=== PATIENT | female | born 1945 | race Caucasian/White ===

== ENCOUNTER 2021-01-11 09:18 | Emergency (ER) | payer MEDICARE, SELFPAY ==
--- NOTE | ~2021-01-11 | XR_ITS ---
EXAMINATION: XR chest 2V DATE: 01/11/2021 10:03 INDICATION: Nonproductive cough. TECHNIQUE: Frontal and lateral views of the chest were obtained. COMPARISON: None. FINDINGS: The chest demonstrates clear lungs without pneumonia, pleural effusion, or pneumothorax. Th e heart size is normal. Surgical clips in the right upper quadrant are likely from cholecystectomy. IMPRESSION: 1. No acute cardiopulmonary disease. Reviewed, dictated and finalized at location A.
[2021-01-11 09:31] VITALS: BP 143/89; PULSE 76; RESP 18; TEMP 36.4; O2SAT 97
--- NOTE | 2021-01-11 09:46 | ED.URI ---
HPI - URI/Sore Throat General Chief Complaint: Upper Respiratory Infection Stated Complaint: cold symptoms Time Seen by Provider: 01/11/21 09:46 Source: patient and RN notes reviewed Mode of arrival: ambulatory Limitations: no limitations History of Present Illness HPI Narrative: 75-year-old female presents with concern for cough that started on Friday. Reports she was out of town in [facility] and when she returned her cough began. She denies rhinorrhea, nasal congestion, sore throat, postnasal drainage, wheezing, shortness of breath. Reports feeling like she has sputum to cough up, however is unable to. Reports she has been taking Coricidin HBP with little relief. She denies fever, body aches, chills, sweats. Reports she has been Covid vaccinated, her second dose was in November. MD elicited complaint: cough Related Data Home Medications Medication Instructions Recorded Confirmed losartan 50 mg PO BID 01/11/21 01/11/21 metoprolol tartrate 50 mg PO Q12H 01/11/21 01/11/21 Allergies Allergy/AdvReac Type Severity Reaction Status Date / Time No Known Allergies Allergy Verified 01/11/21 09:49 Review of Systems Review of Systems: Narrative: CONSTITUTIONAL: Denies malaise, chills, sweats, or fever. EYES: Denies visual changes, redness, or discharge. ENT: Denies rhinorrhea, congestion, sinus pain, otalgia and sore throat. CARDIOVASCULAR: Denies chest pain, palpitations, or edema. RESPIRATORY: Reports cough. Denies dyspnea. GASTROINTESTINAL: Denies abdominal pain, nausea, vomiting, diarrhea SKIN: Denies rash or itching. MUSCULOSKELETAL: Denies myalgia. NEUROLOGIC: Denies headache. All systems reviewed & are unremarkable except as noted in HPI and below PMFSH Social History Social History Gender identity (if verbalized by the patient): Female Comments At time of signature, agree with nursing past medical, surgical, social and family history. There is no relevant family history pertinent to the presenting complaint Exam Narrative: Exam Narrative: GENERAL: Well-appearing, well-nourished, and in no acute distress. HEAD: Normocephalic EYES: PERRLA, conjunctivae clear ENT: Nares clear, turbinates pink, no discharge. Mucous membranes moist. TM pearly dunlap with sharp light reflex bilaterally; no tragal tenderness. Oropharynx not erythematous without lesions. Tonsils not enlarged and without exudate, no drooling, no hoarseness, no trismus, uvula midline. NECK: Supple. No lymphadenopathy CHEST: Breath sounds equal. Scattered wheezing, rhonchi. Cough noted. No rales, or stridor. No respiratory distress, speaks in full sentences. HEART: Regular rate and rhythm. No murmur heard. SKIN: Warm, dry, no rash. NEURO: Alert and oriented x3. PSYCH: Normal mood and affect Course Course Emergency Course: Patient is aware of diagnosis, understands and agrees to treatment plan. Anticipatory guidance given. Patient agrees to follow-up as directed and is aware of reasons to seek care at the emergency department. Portions of this record may have been created with voice recognition software Vital Signs Vital signs: Vital Signs Temperature 97.5 F L 01/11/21 09:31 Pulse Rate 76 01/11/21 09:31 Respiratory Rate 18 01/11/21 09:31 Blood Pressure 143/89 H 01/11/21 09:31 Pulse Oximetry 97 01/11/21 09:31 Temperature 97.5 F L 01/11/21 09:31 Pulse Rate 76 01/11/21 09:31 Respiratory Rate 18 01/11/21 09:31 Blood Pressure 143/89 H 01/11/21 09:31 Pulse Oximetry 97 01/11/21 09:31 Reviewed. MDM - URI/Sore Throat MDM Narrative Medical decision making narrative: Differential diagnosis considered: Breaux virus, strep pharyngitis, allergic rhinitis, upper respiratory tract infection, sinusitis, rhinosinusitis, nasopharyngitis. viral pharyngitis, otitis media, otitis externa, pneumonia, bronchitis, viral cough syndrome, viral syndrome, and influenza. Exam findings show no acute concerns or changes; patient is non-to
== END 2021-01-11 10:18 | disposition home or self-care (01) ==
PROVIDERS: Emergency Provider Nurse Practitioner; PCP Internal Medicine
DX: R05 Cough (principal); Z20.822 Contact with and (suspected) exposure to COVID-19; I12.9 Hypertensive chronic kidney disease with stage 1 through stage 4 chronic kidney disease, or unspecified chronic kidney disease; N18.4 Chronic kidney disease, stage 4 (severe)
CPT/HCPCS: 71046; 87426; 87804; 99213; C9803; G0463

== ENCOUNTER 2021-10-13 09:56 | Emergency (ER) | payer MEDICARE, SELFPAY ==
--- NOTE | 2021-10-13 10:03 | PC.NURSE ---
in br to obtain ua spec.
[2021-10-13 10:09] VITALS: BP 128/97; PULSE 73; RESP 16; TEMP 36.2; O2SAT 99
--- NOTE | 2021-10-13 10:53 | ED.FEMALEGU ---
HPI - Female Genitourinary General Chief complaint: Urogenital-Female Stated complaint: bladder infection Time Seen by Provider: 10/13/21 10:50 Source: patient Mode of arrival: ambulatory Limitations: no limitations History of Present Illness HPI Narrative: Ewa Hernadez is a 76 yo female with HTN, on preventive high cholesterol, who comes to [facility] for complaints of dysuria for the last few days she states that they have improved but her sister who is a nurse tells me that she can fully recover from a potential UTI without medication Related Data Home Medications Medication Instructions Recorded Confirmed losartan 50 mg PO BID 01/11/21 01/11/21 metoprolol tartrate 50 mg PO Q12H 01/11/21 01/11/21 allopurinol 10/13/21 atorvastatin 10/13/21 calcitriol 10/13/21 ergocalciferol (vitamin D2) 10/13/21 Allergies Allergy/AdvReac Type Severity Reaction Status Date / Time No Known Allergies Allergy Verified 01/11/21 09:49 Review of Systems Review of Systems: CONSTITUTIONAL: Denies fever, chills, sweats. EYES: Denies visual changes, redness, discharge. ENT: Denies rhinorrhea, congestion, sore throat, otalgia. CARDIOVASCULAR: Denies chest pain, palpitations, edema. RESPIRATORY: Denies dyspnea, wheezing, cough GASTROINTESTINAL: Denies abdominal pain, nausea, vomiting, diarrhea. GENITOURINARY: Has dysuria, no hematuria, abnormal discharge SKIN: Denies rash or itching. NEUROLOGIC: Denies numbness, or focal weakness. PSYCHIATRIC: Denies anxiety or depression. PMFSH Past Medical History Medical History HTN (hypertension) Social History Social History (Updated 10/13/21 @ 11:05 by Annetta Rivera CNP) Smoking status: Never smoker Alcohol intake: never Gender identity (if verbalized by the patient): Female Comments At time of signature, I agree with nursing past medical, surgical, social and family history. There is no relevant family history pertinent to the presenting complaint. Exam Narrative: GENERAL: This is a well-nourished, well-developed patient, in mild distress. HEAD: normocephalic, atraumatic. EYES:. Sclera clear/white. Vision is grossly intact. EARS: External ears normal, Hearing grossly intact. NOSE: External nose normal without nasal discharge, nares without redness, no rhinorrhea. THROAT: Mucous membranes moist, NECK: Neck supple, non-tender CARDIOVASCULAR: Regular rate and rhythm without murmurs, gallops, or rubs. RESPIRATORY: Clear to auscultation. Breath sounds equal bilaterally. No wheezes, rales, or rhonchi. GASTROINTESTINAL: Abdomen soft, abdomen was more tender few days ago SKIN: warm, intact with no suspicious lesions or rash, good texture and turgor. NEURO: awake, alert, and oriented to person, place and time. EXTREMITIES: Normal range of motion. BACK: Nontender without deformity Course Course Emergency Course: [facility] of dysuria for since Friday, her stomach seemed more tender at Friday and is little better today but she still came for evaluation Urine dipstick is negative but started on antibiotics for dysuria Level of Care: Express Care Visit Vital Signs Vital signs: Vital Signs Temperature 97.2 F L 10/13/21 10:09 Pulse Rate 73 10/13/21 10:09 Respiratory Rate 16 10/13/21 10:09 Blood Pressure 128/97 H 10/13/21 10:09 Pulse Oximetry 99 10/13/21 10:09 Temperature 97.2 F L 10/13/21 10:09 Pulse Rate 73 10/13/21 10:09 Respiratory Rate 16 10/13/21 10:09 Blood Pressure 128/97 H 10/13/21 10:09 Pulse Oximetry 99 10/13/21 10:09 MDM - Female Genitourinary Differential Diagnosis Differential diagnosis: Likely urinary tract infection, vaginitis, cystitis and other (Dysuria) Lab Data Labs: Urine Glucose Negative Reference Range: Negative Urine Bilirubin Negative
== END 2021-10-13 11:12 | disposition home or self-care (01) ==
PROVIDERS: Emergency Provider Nurse Practitioner; PCP Internal Medicine
DX: R30.0 Dysuria (principal); I10 Essential (primary) hypertension
CPT/HCPCS: 81003; 87086; 99213; G0463

== ENCOUNTER 2024-03-08 10:46 | Emergency (ER) | payer MEDICARE, SELFPAY ==
[2024-03-08 11:02] VITALS: BP 141/67; PULSE 75; RESP 16; TEMP 36.7; O2SAT 98
--- NOTE | 2024-03-08 11:21 | ED.FEMALEGU ---
HPI - Female Genitourinary General Chief complaint: Urogenital-Female Stated complaint: Urinary Problems Time Seen by Provider: 03/08/24 11:08 Source: patient, RN notes reviewed and old records reviewed Mode of arrival: ambulatory Limitations: no limitations History of Present Illness HPI Narrative: Patient presents today complaining of a one-week history of dysuria and mild suprapubic pain. Denies any additional symptoms to include nausea, vomiting, hematuria, fever. She has tried no [id number] treatment prior to arrival. Patient was seen here approximately 2 years ago for similar symptoms. Her subsequent urinalysis and urine culture were negative. Patient states she was at her PCPs office last week and left a urinalysis. States it and the subsequent urine culture were negative. Related Data Home Medications Medication Instructions Recorded Confirmed losartan 50 mg tablet 50 mg PO BID 01/11/21 01/11/21 metoprolol tartrate 50 mg tablet 50 mg PO Q12H 01/11/21 01/11/21 allopurinol 100 mg tablet 10/13/21 atorvastatin 40 mg tablet 10/13/21 calcitriol 0.25 mcg capsule 10/13/21 ergocalciferol (vitamin D2) 1,250 10/13/21 mcg (50,000 unit) capsule furosemide 40 mg tablet mg 03/08/24 Allergies Allergy/AdvReac Type Severity Reaction Status Date / Time No Known Allergies Allergy Verified 01/11/21 09:49 Review of Systems Review of Systems: CONSTITUTIONAL: Denies body aches, fever, chills, or sweats. EYES: Denies visual changes, redness, or discharge. ENT: Denies rhinorrhea, congestion, sore throat, or otalgia. CARDIOVASCULAR: Denies chest pain, palpitations, or edema. RESPIRATORY: Denies cough or dyspnea. GASTROINTESTINAL: Denies abdominal pain, nausea, vomiting, or diarrhea. GENITOURINARY: Denies hematuria.+ dysuria, suprapubic pain SKIN: Denies rash, itching, or wounds. MUSCULOSKELETAL: Denies back pain, joint pain, or myalgia. NEUROLOGIC: Denies headache, numbness, tingling, or weakness. PSYCH: Denies depression or anxiety. [facility] Past Medical History Medical History HTN (hypertension) Social History Social History Smoking status: Never smoker Alcohol intake: never Gender identity (if verbalized by the patient): Female Comments At time of signature, I have reviewed and agree with nursing past medical, surgical, social and family history unless otherwise noted. Please see nursing chart for further information. There is no relevant family history pertinent to the presenting complaint Exam Narrative: GENERAL: Well-appearing, well-nourished, and in no acute distress. HEAD: Normocephalic, atraumatic. EYES: EOMI. No redness or drainage. Conjunctivae normal. ENT: Mucous membranes pink and moist. NECK: Normal AROM. CHEST: No respiratory distress. Clear to auscultation. HEART: Regular rate and rhythm. No murmur appreciated. ABDOMEN: Soft, nontender, nondistended, normal active bowel sounds. EXTREMITIES: Normal range of motion. No edema. SKIN: Warm, dry, no rash. Capillary refill normal. Normal skin turgor. NEURO: No focal deficits. Alert and oriented x3. Gait steady. PSYCH: Normal affect. No signs of depression or anxiety. Course Course Level of Care: Express Care Visit Vital Signs Vital signs: Vital Signs Temperature 98.1 F 03/08/24 11:02 Pulse Rate 75 03/08/24 11:02 Respiratory Rate 16 03/08/24 11:02 Blood Pressure 141/67 H 03/08/24 11:02 Pulse Oximetry 98 03/08/24 11:02 Oxygen Delivery Room Air 03/08/24 11:02 Temperature 98.1 F 03/08/24 11:02 Pulse Rate 75 03/08/24 11:02 Respiratory Rate 16 03/08/24 11:02 Blood Pressure 141/67 H 03/08/24 11:02 Pulse Oximetry 98 03/08/24 11:02 Oxygen Delivery Room Air 03/08/24 11:02 Reviewed MDM - Female Genitourinary MDM Narrative Medical decision making narr
== END 2024-03-08 11:25 | disposition home or self-care (01) ==
PROVIDERS: Emergency Provider Nurse Practitioner; PCP Internal Medicine
DX: R30.0 Dysuria (principal); I10 Essential (primary) hypertension
CPT/HCPCS: 81003; 87086; 87088; 99213; G0463

== ENCOUNTER 2025-03-07 08:40 | Emergency (ER) | payer MEDICARE, SELFPAY ==
--- NOTE | 2025-03-07 08:46 | ED_ITS ---
HPI - Skin/Abscess/Foreign Bdy General Chief complaint: Skin/Abscess/Foreign Body Stated complaint: stung by wasp Time Seen by Provider: 03/07/25 08:40 Source: patient Mode of arrival: ambulatory Limitations: no limitations History of Present Illness HPI narrative: Patient is a 79-year-old female who presents with wasp sting to left upper eyelid. States she used ice overnight and swelling has significantly improved. At left eye still swollen shut but patient states if it is open she can see normally without any blurred vision. Denies any pain, mouth or throat swelling, shortness of breath. Related Data Home Medications ?Medication ?Instructions ?Recorded ?Confirmed ?Last Taken ?Type losartan 50 mg tablet 50 mg PO BID 01/11/21 01/11/21 Unknown History metoprolol tartrate 50 mg tablet 50 mg PO Q12H 01/11/21 01/11/21 Unknown History allopurinol 100 mg tablet 10/13/21 Unknown History atorvastatin 40 mg tablet 10/13/21 Unknown History calcitriol 0.25 mcg capsule 10/13/21 Unknown History ergocalciferol (vitamin D2) 1,250 10/13/21 Unknown History mcg (50,000 unit) capsule furosemide 40 mg tablet mg 03/08/24 Unknown History Allergies Allergy/AdvReac Type Severity Reaction Status Date / Time No Known Allergies Allergy Verified 03/07/25 09:12 Review of Systems Review of Systems: All systems reviewed & are unremarkable except as noted in HPI and below Constitutional: Constitutional: Denies body ache(s), Denies chills, Denies fatigue, Denies fever(s), Denies headache(s), Denies malaise and Denies weakness Eyes: Eyes: Denies blurry vision, Denies irritation, Denies loss of vision and Reports other (eye swelling) ENT: Denies otalgia, Denies headache(s), Denies nasal discharge, Denies sinus pain, Denies sore throat, Denies throat swelling and Denies tongue swelling Cardiovascular: Cardiovascular: Denies chest pain, Denies irregular heart rhythm and Denies dyspnea Respiratory: Respiratory: Denies dyspnea Gastrointestinal: Gastrointestinal: Denies abdominal pain, Denies melena, Denies hematochezia, Denies diarrhea, Denies nausea and Denies vomiting Musculoskeletal: Musculoskeletal: Denies back pain, Denies myalgias and Denies arthralgias Integumentary/Breasts: Skin/Breast: Denies pruritus and Denies rash Neurologic: Denies headache(s), Denies loss of vision and Denies weakness Psychiatric: Psychiatric: Reports no additional psychiatric complaints Endocrine: Endocrine: Denies fatigue PMFSH Past Medical History Medical History HTN (hypertension) Social History Social History Smoking status: Never smoker Alcohol intake: never Gender identity (if verbalized by the patient): Female Comments At time of signature, agree with nursing past medical, surgical, social and family history. There is no relevant family history pertinent to the presenting complaint. Exam Const: General: cooperative, healthy appearing, comfortable, no acute distress and well nourished Nutritional Appearance: well nourished Orientation/consciousness: patient oriented x3 Limitations: no limitations HENMT: Head: normal to inspection, normocephalic and atraumatic Ears: hearing grossly normal bilaterally and external ears normal Face/Nose/Sinus: Normal external nose present, normal facial exam and face symmetric Face and sinus: normal facial exam, face symmetric and edema on the left periorbital Mouth: Yes lip normal Eyes: General: appearance normal, both eyes and all related structures Alignment and Position: alignment normal and position normal Periorbital: periorbital findings normal Eyelids: eyelid abnormality left upper eyelid swelling; without erythema and nontender and left lower eyelid swelling; without erythema and nontender Sclera: sclerae normal Pupils: Equal, round and reactive pupils present EOM: EOMs intact bilaterally Neck: Neck: normal visual inspection, full ROM and supple Chest: Chest palpation & inspection: normal inspection of the chest Resp: Effort & Inspection: normal respiratory effort and able to speak in complete sentences Auscultation: clear to auscultation bilaterally Cardio: Rate: regular rate Rhythm: regular rhythm Heart sounds: S1 normal heart sound present and S2 normal heart sound present GI: Inspection: normal to inspection Skin: General skin exam: normal color and no rashes or lesions noted Neuro: General: patient oriented x3 and moves all extremities Cranial nerves: Yes Equal, round and reactive pupils present Speech: normal speech Gait exam (Neuro): Normal gait present Extrem: General: normal to inspection, full ROM and no edema Psych: Appearance: grossly normal and well kempt Mental Status: mental status grossly normal Speech and movement: Normal speech and movement present Affect: normal affect Attitude: cooperative Thought process: Normal thought process present Course Course Emergency Course: Patient is aware of diagnosis, understands and agrees to treatment plan. Anticipatory guidance given. Patient agrees to follow-up as directed and is aware of reasons to seek care at the emergency department. Portions of this record may have been created with voice recognition software Level of Care: Express Care Visit Vital Signs Vital signs: Reviewed MDM - Skin/Abscess/Foreign Bdy MDM Narrative Medical decision making narrative: Dexamethasone given for significant swelling to eye. Pt well hydrated appearing, in no respiratory distress, hemodynamically stable. Recommend supportive care. The patient is stable at time of discharge the clinical impression was discussed and the patient was given the opportunity to ask questions, which were addressed as completely as possible given the information available at present. Anticipatory guidance and return to care precautions were discussed and the importance of primary care follow-up was stressed and encouraged. The patient voiced understanding of the plan, indications to return, and the need for follow-up. Exam findings show no acute concerns or changes Patient is appropriate for outpatient treatment and follow-up. Differential Diagnosis Differential diagnosis: Likely allergic reaction to drug, cellulitis, insect bites (sting) and contact dermatitis Medical Records Attestation: I reviewed the patient's medical records. Discharge Plan Discharge Clinical Impression: Allergic reaction to wasp sting Patient Disposition: Home Condition: Stable Instructions: Insect Bite or Sting (ED) Additional Instructions: The steroid received today typically last for 36-72 hours. Seek Emergency Help If You Notice: * Difficulty breathing or swallowing * Swelling of the lips, tongue, or throat * Hives over a large area * Dizziness or fainting * Nausea, vomiting, or a racing heart These may indicate anaphylaxis, a life-threatening allergic reaction. Call 911 or go to the ER immediately. For Less Severe Reactions (but with significant swelling): 1.?Antihistamines * Diphenhydramine (Benadryl): 25?50 mg every 4?6 hours (adults) * For children: use age-appropriate dosing * May cause drowsiness * Non-drowsy alternatives: cetirizine (Zyrtec), loratadine (Claritin), fexofenadine (Maria Elena) 2.?Cold Compress * Apply a cold pack or cloth-wrapped ice to the area for 10?15 minutes at a time to reduce swelling and pain. 3.?Elevation * Keep the head elevated, especially when lying down, to help reduce facial swelling. 4.?Pain Relief * Tylenol 650-1000mg by mouth every 4-6 hours. Do not exceed 4000mg in 24 hours. * Advil (Ibuprofen) 600 mg by mouth every 6 hours. Do not exceed 2400mg in 24 hours. 8 AM: Tylenol 11 AM: Ibuprofen 2 PM: Tylenol 5 PM: Ibuprofen 8 PM: Tylenol 11 PM: Ibuprofen 2 AM: Tylenol 5 AM: Ibuprofen When to See a Doctor (even if not life-threatening): * Swelling continues to worsen after 24 hours * Signs of infection develop (redness, warmth, pus) * You?ve had allergic reactions to stings in the past Patient Language: Maltese Prescriptions: No Action losartan 50 mg Tablet 50 mg PO BID metoprolol tartrate 50 mg Tablet 50 mg PO Q12H albuterol sulfate 90 mcg/actuation HFA aerosol inhaler 2 puff INHALATION QID PRN (Reason: shortness of breath or wheezing) Qty: 8.5 0RF furosemide 40 mg tablet atorvastatin 40 mg tablet allopurinol 100 mg tablet ergocalciferol (vitamin D2) 1,250 mcg (50,000 unit) capsule calcitriol 0.25 mcg capsule Follow-up/Referrals: Scarlet,MD Geo [Primary Care Provider] - 3 Days Time of Disposition: 09:47
[2025-03-07 08:52] VITALS: BP 119/70; PULSE 78; RESP 16; TEMP 37.1; O2SAT 97
[2025-03-07] MEDS: dexAMETHasone SOD PHOS INJ 10 MG/ML 1 ML VIAL IM (09:40)
== END 2025-03-07 10:01 | disposition home or self-care (01) ==
PROVIDERS: Emergency Provider Nurse Practitioner Family; PCP Internal Medicine
DX: T63.461A Toxic effect of venom of wasps, accidental (unintentional), initial encounter (principal); I10 Essential (primary) hypertension
CPT/HCPCS: 96372; 99213; G0463; J1100